=== PATIENT | female | born 1940 | race Caucasian/White ===

== ENCOUNTER 2017-02-20 08:45 | Inpatient (IN) | payer OTHER ==
[~2017-02-20] VITALS: Ht 162.6 cm; Wt 120.7 kg
[2017-02-20 00:50] VITALS: BP 140/75
[2017-02-20 09:52] LABS: ADD MIUA? YES; BILIRUBIN NEGATIVE; BLOOD SMALL; COLOR YELLOW ((YELLOW)); GLUCOSE (STRIP) NEGATIVE; KETONES NEGATIVE; LEUKOCYTES LARGE; NITRITE POSITIVE; PROTEIN (STRIP) NEGATIVE; SPECIFIC GRAVITY 1.016 (1.000-1.030); UROBILINOGEN 0.2 MG/DL (0.2-1.0)
[2017-02-20 09:57] LABS: BACTERIA 3+ /HPF; EPITHELIAL CELLS RARE /HPF; MUCUS TRACE /LPF; RED BLOOD CELLS 0-5 /HPF (0-5); UCUL ADDED? YES
[2017-02-20 10:15] LABS: EOSINOPHIL (%) 10.4 % (0-5); EOSINOPHIL COUNT 0.3 K/uL (0-0.3); HEMATOCRIT 28.8 % (36.0-46.0); IMMATURE GRANULOCYTE (%) 0.4 % (0.0-0.7); INSTRUMENT ABS NEUTROPHIL CT 1.6 K/uL; LYMPHOCYTE COUNT 0.7 K/uL (1.0-2.8); MCHC 31.6 G/DL (30.0-36.0); MCV 101.4 FL (83-99); MEAN PLAT.VOLUME 9.6 uM^3 (9.5-12.4); MONOCYTE (%) 8.6 % (3-12); MONOCYTE COUNT 0.2 K/uL (0-0.8); NEUTROPHIL (%) 56.7 % (45-76); NEUTROPHIL COUNT 1.6 K/uL (1.8-6.4); PLATELET COUNT 90 K/uL (156-360); RBC DIS.WIDTH-CV 12.7 % (11.8-14.6); RED BLOOD COUNT 2.84 M/uL (3.80-5.20); WHITE BLOOD COUNT 2.8 K/uL (4.1-10.2)
[2017-02-20 10:23] LABS: INTER. NORMALIZED RATIO 1.2; PROTHROMBIN TIME 13.1 SEC (10.2-12.9)
[2017-02-20 10:26] LABS: PTT 35.6 SEC (25-37)
[2017-02-20 10:27] LABS: CHLORIDE 108 mEq/L (99-109); POTASSIUM 5.1 mEq/L (3.7-5.4); SODIUM 137 mEq/L (136-147)
[2017-02-20 10:29] LABS: GLUCOSE 199 mg/dL (70-99)
[2017-02-20 10:30] LABS: ANION GAP 8 MEQ/L (2-14)
[2017-02-20 10:33] LABS: GFR ESTIMATE (CALCULATED) 31 mL/min/; UREA NITROGEN (BUN) 45 mg/dL (9-23)
[2017-02-20 10:42] LABS: TROP-I INTERPRETATION NEGATIVE; TROPONIN-I < 0.01 ng/mL (0.0-0.30)
[2017-02-20] MEDS ORDERED: METOPROLOL SUCC50 MG PO (11:40)
[2017-02-20] MEDS ORDERED: DOXAZOSIN MESYLA4 MG PO (11:44)
[2017-02-20] MEDS ORDERED: ASPIR-LOW81 MG PO (11:44)
[2017-02-20] MEDS ORDERED: CLONIDINE1 EAC2 TD (11:44)
[2017-02-20] MEDS ORDERED: DULOXETINE HCL30 MG PO (11:45)
[2017-02-20] MEDS ORDERED: TRAMADOL HCL50 MG PO (11:45)
[2017-02-20] MEDS ORDERED: QUINAPRIL HCL10 MG PO (11:45)
[2017-02-20] MEDS ORDERED: HYDROCHLOROTHIA25 MG PO (11:45)
[2017-02-20] MEDS ORDERED: CRESTOR20 MG PO (11:46)
[2017-02-20] MEDS ORDERED: LEVOTHYROXINE137 MCG PO (11:46)
[2017-02-20] MEDS ORDERED: JANUVIA100 MG PO (11:46)
[2017-02-20] MEDS ORDERED: PIOGLITAZONE HC45 MG PO (11:47)
[2017-02-20] MEDS ORDERED: NATEGLINIDE120 MG PO (11:47)
[2017-02-20] MEDS ORDERED: VITAMIN D31000 UNI2 PO (11:47)
[2017-02-20] MEDS ORDERED: VELTASSA8.4 GM PO (11:48)
[2017-02-20 13:25] VITALS: BP 159/67
[2017-02-20 16:21] LABS: POINT-OF-CARE METER ID UU13113803
[2017-02-20 19:00] VITALS: BP 120/56
[2017-02-20 21:36] LABS: POINT-OF-CARE METER ID UU13113698
[2017-02-21] VITALS (7 sets, daily range): BP systolic 125–184; BP diastolic 60–80
[2017-02-21 05:34] LABS: HEMATOCRIT 26.8 % (36.0-46.0); MCH 33.1 PG (29.0-34.0); MCHC 32.5 G/DL (30.0-36.0); MCV 101.9 FL (83-99); MEAN PLAT.VOLUME 10.5 uM^3 (9.5-12.4); PLATELET COUNT 98 K/uL (156-360); RBC DIS.WIDTH-CV 13.1 % (11.8-14.6); RBC DIS.WIDTH-SD 48.7 % (39-53); RED BLOOD COUNT 2.63 M/uL (3.80-5.20); WHITE BLOOD COUNT 4.4 K/uL (4.1-10.2)
[2017-02-21 05:47] LABS: ANION GAP 6 MEQ/L (2-14); CHLORIDE 114 MEQ/L (99-109); GFR ESTIMATE (CALCULATED) 39 mL/min/; GLUCOSE 174 mg/dL (70-99); SAMPLE HEMOLYSIS CHECK 0; SAMPLE ICTERIC CHECK 0; SAMPLE LIPEMIA CHECK 0; SODIUM 140 MEQ/L (136-147); UREA NITROGEN (BUN) 36 mg/dL (9-23)
[2017-02-21 07:44] LABS: POINT-OF-CARE METER ID UU13113698
[2017-02-21 11:23] LABS: POINT-OF-CARE METER ID UU13113781
[2017-02-21 16:17] LABS: POINT-OF-CARE METER ID UU13113698
[2017-02-21 20:53] LABS: POINT-OF-CARE METER ID UU13113781
[2017-02-22 03:30] VITALS: BP 138/63
[2017-02-22 05:50] LABS: EOSINOPHIL (%) 1.2 % (0-5); EOSINOPHIL COUNT 0.1 K/uL (0-0.3); HEMATOCRIT 26.2 % (36.0-46.0); IMMATURE GRANULOCYTE (%) 0.2 % (0.0-0.7); LYMPHOCYTE COUNT 0.8 K/uL (1.0-2.8); MCH 33.5 PG (29.0-34.0); MCHC 32.8 G/DL (30.0-36.0); MCV 101.9 FL (83-99); MEAN PLAT.VOLUME 10.2 uM^3 (9.5-12.4); MONOCYTE (%) 9.2 % (3-12); MONOCYTE COUNT 0.4 K/uL (0-0.8); NEUTROPHIL (%) 69.7 % (45-76); PLATELET COUNT 95 K/uL (156-360); RBC DIS.WIDTH-CV 13.1 % (11.8-14.6); RBC DIS.WIDTH-SD 49.1 % (39-53); RED BLOOD COUNT 2.57 M/uL (3.80-5.20); WHITE BLOOD COUNT 4.3 K/uL (4.1-10.2)
[2017-02-22 06:13] LABS: ANION GAP 4 MEQ/L (2-14); CHLORIDE 113 MEQ/L (99-109); GFR ESTIMATE (CALCULATED) 47 mL/min/; GLUCOSE 175 mg/dL (70-99); POTASSIUM 5.2 MEQ/L (3.7-5.4); SAMPLE HEMOLYSIS CHECK 0; SAMPLE ICTERIC CHECK 0; SAMPLE LIPEMIA CHECK 0; SODIUM 139 MEQ/L (136-147); UREA NITROGEN (BUN) 23 mg/dL (9-23)
[2017-02-22 07:12] VITALS: BP 140/60
[2017-02-22 07:49] LABS: POINT-OF-CARE METER ID UU13113781
[2017-02-22 11:41] LABS: POINT-OF-CARE METER ID UU13113698
[2017-02-22] MEDS ORDERED: CEFTIN500 MG PO (11:49)
[2017-02-22 11:53] VITALS: BP 122/58
== END 2017-02-22 13:29 | disposition home health service (06) | DRG 86 ==
LOC: EME → EDBD 08:45 → EME 08:45 → 4EAST 11:03 → EDOF 11:03 → ENRESERV 11:07 → 4EAST 13:03
PROVIDERS: Emergency Medicine; Internal Medicine
DX: S06.5X1A Traumatic subdural hemorrhage with loss of consciousness of 30 minutes or less, initial encounter (principal); D61.818 Other pancytopenia; E11.65 Type 2 diabetes mellitus with hyperglycemia; E11.22 Type 2 diabetes mellitus with diabetic chronic kidney disease; N18.3 Chronic kidney disease, stage 3 (moderate); S06.6X1A Traumatic subarachnoid hemorrhage with loss of consciousness of 30 minutes or less, initial encounter; I12.9 Hypertensive chronic kidney disease with stage 1 through stage 4 chronic kidney disease, or unspecified chronic kidney disease; W10.9XXA Fall (on) (from) unspecified stairs and steps, initial encounter; Y93.01 Activity, walking, marching and hiking; N39.0 Urinary tract infection, site not specified; B96.1 Klebsiella pneumoniae [K. pneumoniae] as the cause of diseases classified elsewhere; Z16.29 Resistance to other single specified antibiotic; Z74.09 Other reduced mobility; R26.81 Unsteadiness on feet; E66.9 Obesity, unspecified; Z79.4 Long term (current) use of insulin; R35.0 Frequency of micturition; Z82.49 Family history of ischemic heart disease and other diseases of the circulatory system; Z87.442 Personal history of urinary calculi; I25.2 Old myocardial infarction; Z68.42 Body mass index [BMI] 45.0-49.9, adult
CPT/HCPCS: 70450; 71010; 80048; 81003; 82948; 84484; 85025; 85027; 85610; 85730; 87077; 87086; 87186; 93005; 93306; 93880; 99281; 99285; J0696; J1815; J2405; J7030; J7050